=== PATIENT | female | born 1950 | race Caucasian/White ===

== ENCOUNTER 2024-02-13 18:33 | Inpatient (IN) | payer MEDICARE, OTHER ==
[~2024-02-13] VITALS: Ht 154.9 cm; Wt 54.9 kg
[2024-02-13] MEDS ORDERED: diphenhydrAMINE 50 MG/1 ML VIAL ONE ×2 (18:39→21:22)
[2024-02-13] MEDS ORDERED: HALOPERIDOL LACTATE 5 MG/1 ML VIAL ONE ×2 (18:39→21:22)
[2024-02-13] MEDS ORDERED: LORAZEPAM 2 MG/1 ML VIAL ONE ×2 (18:40→21:23)
[2024-02-13] MEDS ORDERED: OLAN15TA3 PO (19:02)
[2024-02-13] MEDS ORDERED: ASPI81TA31 PO (19:02)
[2024-02-13] MEDS ORDERED: ACET-3117 PO (19:02)
[2024-02-13] MEDS ORDERED: LEVO200T9 PO (19:02)
[2024-02-13] MEDS ORDERED: AMLO10TA4 PO (19:02)
[2024-02-13] MEDS ORDERED: DIVA500T54 PO (19:02)
[2024-02-13] MEDS ORDERED: ASCO500C18 PO (19:02)
[2024-02-13] MEDS ORDERED: MIRT-73 PO (19:02)
[2024-02-13] MEDS ORDERED: NA P133E RC (19:02)
[2024-02-13] MEDS ORDERED: TUBERCULIN PPD (19:02)
[2024-02-13] MEDS ORDERED: MAGN400O6 PO (19:02)
[2024-02-13] MEDS ORDERED: BISA10SU61 RC (19:02)
[2024-02-13] MEDS ORDERED: QUET200T PO (19:02)
[2024-02-13] MEDS ORDERED: ACETAMINOPHEN ES 500 MG TABLET ONE (19:03)
[2024-02-13 19:06] LABS: BASOPHILS % (AUTO) 0.4 % (0.0-2.0); DIFFERENTIAL COMMENT 1; EOSINOPHILS # (AUTO) 0.2 K/uL (0.0-0.7); EOSINOPHILS % (AUTO) 1.9 % (0.0-7.0); HEMATOCRIT 41.7 % (31.2-41.9); HEMOGLOBIN 14.8 g/dL (10.9-14.3); LYMPHOCYTES # (AUTO) 3.6 K/uL (0.8-4.8); LYMPHOCYTES % (AUTO) 40.5 % (20.5-51.5); MEAN CORPUSCULAR HEMOGLOBIN 31.2 uug (24.7-32.8); MEAN CORPUSCULAR HGB CONC 36 g/dL (32.3-35.6); MEAN CORPUSCULAR VOLUME 87.8 fL (75.5-95.3); MONOCYTES # (AUTO) 0.6 K/uL (0.1-1.30); MONOCYTES % (AUTO) 6.7 % (0.0-11.0); NEUTROPHILS # (AUTO) 4.5 K/uL (1.8-8.9); NEUTROPHILS % (AUTO) 50.5 % (38.5-71.5); PLATELET COUNT (AUTO) 391 K/uL (179-408); RED BLOOD CELL COUNT(AUTO) 4.75 MIL/uL (3.63-4.92); RED CELL DISTRIBUTION WIDTH 13.9 % (12.3-17.7); WHITE BLOOD COUNT (AUTO) 8.9 K/uL (3.8-11.8)
[2024-02-13 19:17] LABS: CARBON DIOXIDE 24 mmol/L (21-32); CHLORIDE 106 mmol/L (98-107); CREATININE 0.5 mg/dL (0.6-1.3); GLUCOSE 88 mg/dL (74-106); POTASSIUM 3.9 mmol/L (3.5-5.1); SODIUM SERUM 140 mmol/L (136-145); UREA NITROGEN, BLOOD 15 mg/dL (7-18)
[2024-02-13] MEDS: LORAZEPAM 2 MG/1 ML VIAL IM ONE ×2 (19:21→21:28)
[2024-02-13] MEDS: diphenhydrAMINE 50 MG/1 ML VIAL IVP ONE (19:21)
[2024-02-13] MEDS: HALOPERIDOL LACTATE 5 MG/1 ML VIAL IM ONE ×2 (19:21→21:28)
[2024-02-13 19:26] LABS: ALANINE AMINOTRANSFERASE 13 U/L (14-59); ALBUMIN 3.3 g/dL (3.4-5.0); ALKALINE PHOSPHATASE 111 U/L (50-136); ASPARTATE AMINOTRANSFERASE < 5 U/L (15-37); BILIRUBIN,DIRECT 0.1 mg/dL (0.0-0.2); BILIRUBIN,TOTAL 0.3 mg/dL (0.2-1.0); TOTAL PROTEIN, SERUM 7.5 g/dL (6.4-8.2)
[2024-02-13 19:37] LABS: CALCIUM 9.1 mg/dL (8.5-10.1)
[2024-02-13 19:43] LABS: ETHANOL < 3 MG/DL (0-10)
[2024-02-13] MEDS: diphenhydrAMINE 50 MG/1 ML VIAL IM ONE (21:28)
[2024-02-13] MEDS ORDERED: QUETIAPINE FUMARATE 100 MG TABLET PO PRN (23:45)
[2024-02-13] MEDS ORDERED: MAGNESIUM HYDROXIDE 30 ML LIQUID UDC PO PRN (23:45)
[2024-02-13] MEDS ORDERED: ZOLPIDEM 5 MG TABLET PO PRN (23:45)
[2024-02-14] MEDS: BLOOD SUGAR DIAGNOSTIC 1 EACH STRIP VI ONE (00:28)
[2024-02-14 02:50] LABS: THYROID STIMULATING HORMONE 0.235 mIU/mL (0.358-3.740)
[2024-02-14 02:52] LABS: ACETAMINOPHEN < 10.0 ug/mL (10-30)
[2024-02-14] MEDS ORDERED: QUETIAPINE FUMARATE 25 MG TABLET PO PRN (07:15)
[2024-02-14 08:23] VITALS: BP 140/86; TEMP 97.9; O2SAT 95
[2024-02-14 08:29] LABS: ALANINE AMINOTRANSFERASE 10 U/L (14-59); ALBUMIN 2.7 g/dL (3.4-5.0); ALKALINE PHOSPHATASE 92 U/L (50-136); ASPARTATE AMINOTRANSFERASE < 5 U/L (15-37); BILIRUBIN,TOTAL 0.4 mg/dL (0.2-1.0); CALCIUM 8.4 mg/dL (8.5-10.1); CARBON DIOXIDE 24 mmol/L (21-32); CHLORIDE 112 mmol/L (98-107); CREATININE 0.6 mg/dL (0.6-1.3); GLUCOSE 80 mg/dL (74-106); POTASSIUM 4.2 mmol/L (3.5-5.1); SODIUM SERUM 144 mmol/L (136-145); TOTAL PROTEIN, SERUM 6.1 g/dL (6.4-8.2); UREA NITROGEN, BLOOD 16 mg/dL (7-18)
[2024-02-14] MEDS ORDERED: BISACODYL 10 MG SUPP.RECT RC PRN (09:00)
[2024-02-14] MEDS ORDERED: ASCORBIC ACID 500 MG TABLET PO SCH (09:00)
[2024-02-14] MEDS: AMLODIPINE 10 MG TABLET PO SCH (09:08)
[2024-02-14] MEDS: ASPIRIN 81 MG TAB.CHEW PO SCH (09:08)
[2024-02-14] MEDS: ASCORBIC ACID 500 MG TABLET PO SCH (09:08)
[2024-02-14] MEDS ORDERED: DIVALPROEX 125 MG TABLET.DR PO SCH (14:00)
[2024-02-14] MEDS: DIVALPROEX 250 MG TABLET.DR PO SCH (14:02)
[2024-02-14] MEDS: OLANZAPINE ZYDIS 5 MG TAB.RAPDIS PO PRN (14:04)
[2024-02-14] MEDS: MAG HYDROX/AL HYDROX/SIMETH 30 ML LIQUID UDC PO PRN (15:20)
[2024-02-14] MEDS: ACETAMINOPHEN 325 MG TABLET PO PRN (15:20)
[2024-02-14 16:46] VITALS: BP 128/99; TEMP 98; O2SAT 95
[2024-02-14 20:00] VITALS: BP 114/91; TEMP 98; O2SAT 95
[2024-02-14] MEDS: OLANZAPINE ZYDIS 5 MG TAB.RAPDIS PO SCH (21:00)
== END 2024-02-14 23:05 | disposition short-term general hospital (02) | DRG 885 ==
LOC: ER 18:34 → GPS 23:15
PROVIDERS: ADMIT Psychiatry & Neurology Psychiatry; ATTEND Nurse Practitioner Family
DX: F25.9 Schizoaffective disorder, unspecified (principal); F06.8 Other specified mental disorders due to known physiological condition; G93.40 Encephalopathy, unspecified; E44.1 Mild protein-calorie malnutrition; K56.609 Unspecified intestinal obstruction, unspecified as to partial versus complete obstruction; E03.9 Hypothyroidism, unspecified; E88.09 Other disorders of plasma-protein metabolism, not elsewhere classified; F17.210 Nicotine dependence, cigarettes, uncomplicated; I10 Essential (primary) hypertension; J44.9 Chronic obstructive pulmonary disease, unspecified; R41.9 Unspecified symptoms and signs involving cognitive functions and awareness; Z88.1 Allergy status to other antibiotic agents; Z91.012 Allergy to eggs; Z91.013 Allergy to seafood; Z88.8 Allergy status to other drugs, medicaments and biological substances; Z91.018 Allergy to other foods
CPT/HCPCS: 36415; 71045; 84443; 84484; 85025; 93005; A4606; A4663; A9150; G0480; J1200; J1630; J2060; J3490

== ENCOUNTER 2024-02-14 21:58 | Inpatient (IN) | payer MEDICARE, OTHER ==
[~2024-02-14] VITALS: Ht 154.9 cm; Wt 69.9 kg
[~2024-02-14 21:58] MED LIST: ACET-3117 PO; AMLO10TA4 PO; ASCO500C18 PO; ASPI81TA31 PO; BISA10SU61 RC; DIVA500T54 PO; LEVO200T9 PO; MAGN400O6 PO; MIRT-73 PO; NA P133E RC; OLAN15TA3 PO; QUET200T PO; TUBERCULIN PPD
[2024-02-15 01:13] VITALS: BP 104/67; O2SAT 95
[2024-02-15] MEDS ORDERED: ONDANSETRON 4 MG/2 ML VIAL IV PRN (01:15)
[2024-02-15] MEDS ORDERED: REMEDY ESSENTIAL ZINC PASTE 113 GM TP PRN (01:15)
[2024-02-15] MEDS: IV D5 1/2 NS 1000 ML 1,000 ML IV SCH (02:32)
[2024-02-15] MEDS: OLANZAPINE 10 MG VIAL IM PRN (03:34)
[2024-02-15] MEDS: LORAZEPAM 2 MG/1 ML VIAL IM PRN (05:41)
[2024-02-15 07:30] LABS: BASOPHILS % (AUTO) 0.6 % (0.0-2.0); EOSINOPHILS # (AUTO) 0.1 K/uL (0.0-0.7); EOSINOPHILS % (AUTO) 1.7 % (0.0-7.0); HEMATOCRIT 39.8 % (31.2-41.9); HEMOGLOBIN 14.5 g/dL (10.9-14.3); LYMPHOCYTES # (AUTO) 2.6 K/uL (0.8-4.8); LYMPHOCYTES % (AUTO) 37.3 % (20.5-51.5); MEAN CORPUSCULAR HEMOGLOBIN 31.8 uug (24.7-32.8); MEAN CORPUSCULAR HGB CONC 36 g/dL (32.3-35.6); MEAN CORPUSCULAR VOLUME 87.1 fL (75.5-95.3); MONOCYTES # (AUTO) 0.5 K/uL (0.1-1.30); MONOCYTES % (AUTO) 6.6 % (0.0-11.0); NEUTROPHILS # (AUTO) 3.7 K/uL (1.8-8.9); NEUTROPHILS % (AUTO) 53.8 % (38.5-71.5); PLATELET COUNT (AUTO) 366 K/uL (179-408); RED BLOOD CELL COUNT(AUTO) 4.56 MIL/uL (3.63-4.92); RED CELL DISTRIBUTION WIDTH 14.1 % (12.3-17.7)
[2024-02-15 07:43] LABS: DIFFERENTIAL COMMENT 1
[2024-02-15 07:59] LABS: ALANINE AMINOTRANSFERASE 13 U/L (14-59); ALBUMIN 3.2 g/dL (3.4-5.0); ALKALINE PHOSPHATASE 106 U/L (50-136); AMYLASE 80 U/L (25-115); ASPARTATE AMINOTRANSFERASE < 5 U/L (15-37); BILIRUBIN,TOTAL 0.6 mg/dL (0.2-1.0); CALCIUM 8.8 mg/dL (8.5-10.1); CARBON DIOXIDE 23 mmol/L (21-32); CHLORIDE 111 mmol/L (98-107); CREATININE 0.6 mg/dL (0.6-1.3); GLUCOSE 94 mg/dL (74-106); MAGNESIUM 2.2 mg/dL (1.8-2.4); PHOSPHOROUS 3.4 mg/dL (2.5-4.9); POTASSIUM 4.1 mmol/L (3.5-5.1); SODIUM SERUM 145 mmol/L (136-145); UREA NITROGEN, BLOOD 12 mg/dL (7-18)
[2024-02-15] MEDS: PANTOPRAZOLE SODIUM 40 MG VIAL IV SCH (09:11)
[2024-02-15 10:32] VITALS: BP 152/97; TEMP 98; O2SAT 95
[2024-02-15] MEDS ORDERED: DIATR MEGLU/DIATRIZOATE SODIUM 30 ML BOTTLE ONE (12:15)
[2024-02-15 12:21] VITALS: BP 136/99; TEMP 98.4; O2SAT 95
[2024-02-15 13:42] LABS: LIPASE 28 U/L (16-77)
[2024-02-15 18:29] VITALS: BP 145/98; TEMP 98; O2SAT 94
[2024-02-16 06:00] VITALS: BP 134/98; TEMP 98.1
[2024-02-16 07:27] LABS: BASOPHILS # (AUTO) 0.1 K/UL (0.0-0.2); BASOPHILS % (AUTO) 0.7 % (0.0-2.0); EOSINOPHILS # (AUTO) 0.1 K/uL (0.0-0.7); EOSINOPHILS % (AUTO) 0.8 % (0.0-7.0); HEMATOCRIT 41.3 % (31.2-41.9); HEMOGLOBIN 14.8 g/dL (10.9-14.3); LYMPHOCYTES # (AUTO) 2.8 K/uL (0.8-4.8); LYMPHOCYTES % (AUTO) 27.7 % (20.5-51.5); MEAN CORPUSCULAR HEMOGLOBIN 31.2 uug (24.7-32.8); MEAN CORPUSCULAR HGB CONC 36 g/dL (32.3-35.6); MEAN CORPUSCULAR VOLUME 87.4 fL (75.5-95.3); MONOCYTES # (AUTO) 0.8 K/uL (0.1-1.30); MONOCYTES % (AUTO) 7.7 % (0.0-11.0); NEUTROPHILS # (AUTO) 6.4 K/uL (1.8-8.9); NEUTROPHILS % (AUTO) 63.1 % (38.5-71.5); PLATELET COUNT (AUTO) 354 K/uL (179-408); RED BLOOD CELL COUNT(AUTO) 4.73 MIL/uL (3.63-4.92); RED CELL DISTRIBUTION WIDTH 14.2 % (12.3-17.7); WHITE BLOOD COUNT (AUTO) 10.2 K/uL (3.8-11.8)
[2024-02-16 07:37] LABS: DIFFERENTIAL COMMENT 1
[2024-02-16 07:58] LABS: CARBON DIOXIDE 23 mmol/L (21-32); CHLORIDE 113 mmol/L (98-107); CREATININE 0.6 mg/dL (0.6-1.3); GLUCOSE 126 mg/dL (74-106); PHOSPHOROUS 3.6 mg/dL (2.5-4.9); POTASSIUM 4.3 mmol/L (3.5-5.1); SODIUM SERUM 145 mmol/L (136-145); UREA NITROGEN, BLOOD 11 mg/dL (7-18)
[2024-02-16 08:12] VITALS: BP 134/98; TEMP 98.1; O2SAT 95
[2024-02-16 09:02] LABS: CALCIUM 9.2 mg/dL (8.5-10.1)
[2024-02-16 12:28] VITALS: BP 124/94; TEMP 98.9; O2SAT 97
[2024-02-16] MEDS ORDERED: MIRALAX 17 GM POWD.PACK NG SCH (13:00)
[2024-02-16] MEDS: MIRALAX 17 GM POWD.PACK NG SCH (13:31)
[2024-02-16 16:00] VITALS: BP 137/95; TEMP 98.9; O2SAT 95
[2024-02-16] MEDS: ACETAMINOPHEN 650 MG SUPP.RECT RC PRN (17:57)
[2024-02-17 06:05] LABS: BASOPHILS % (AUTO) 0.5 % (0.0-2.0); EOSINOPHILS # (AUTO) 0.2 K/uL (0.0-0.7); EOSINOPHILS % (AUTO) 1.9 % (0.0-7.0); HEMATOCRIT 40.3 % (31.2-41.9); HEMOGLOBIN 14.2 g/dL (10.9-14.3); LYMPHOCYTES # (AUTO) 3.2 K/uL (0.8-4.8); LYMPHOCYTES % (AUTO) 34.9 % (20.5-51.5); MEAN CORPUSCULAR HEMOGLOBIN 31.2 uug (24.7-32.8); MEAN CORPUSCULAR HGB CONC 35 g/dL (32.3-35.6); MEAN CORPUSCULAR VOLUME 88.4 fL (75.5-95.3); MONOCYTES # (AUTO) 0.8 K/uL (0.1-1.30); MONOCYTES % (AUTO) 8.3 % (0.0-11.0); NEUTROPHILS # (AUTO) 4.9 K/uL (1.8-8.9); NEUTROPHILS % (AUTO) 54.4 % (38.5-71.5); PLATELET COUNT (AUTO) 308 K/uL (179-408); RED BLOOD CELL COUNT(AUTO) 4.55 MIL/uL (3.63-4.92); RED CELL DISTRIBUTION WIDTH 14.1 % (12.3-17.7); WHITE BLOOD COUNT (AUTO) 9.1 K/uL (3.8-11.8)
[2024-02-17 06:25] LABS: CALCIUM 8.7 mg/dL (8.5-10.1); CREATININE 0.6 mg/dL (0.6-1.3); MAGNESIUM 1.9 mg/dL (1.8-2.4); PHOSPHOROUS 4.2 mg/dL (2.5-4.9); POTASSIUM 4.1 mmol/L (3.5-5.1)
[2024-02-17 06:44] LABS: DIFFERENTIAL COMMENT 1
[2024-02-17 12:00] VITALS: BP 111/76; TEMP 98.3; O2SAT 93
[2024-02-17 16:00] VITALS: BP 131/73; TEMP 98; O2SAT 95
[2024-02-17 19:30] VITALS: BP 129/72; TEMP 98.2; O2SAT 96
[2024-02-18 05:50] VITALS: BP 134/79; TEMP 97.8; O2SAT 93
[2024-02-18] MEDS: BENZONATATE 100 MG CAPSULE PO SCH (06:39)
[2024-02-18] MEDS: PANTOPRAZOLE SODIUM 40 MG TABLET.DR PO SCH (06:39)
[2024-02-18 07:27] LABS: BASOPHILS % (AUTO) 0.5 % (0.0-2.0); EOSINOPHILS # (AUTO) 0.2 K/uL (0.0-0.7); EOSINOPHILS % (AUTO) 1.9 % (0.0-7.0); HEMATOCRIT 38.6 % (31.2-41.9); HEMOGLOBIN 13.6 g/dL (10.9-14.3); LYMPHOCYTES # (AUTO) 2.4 K/uL (0.8-4.8); LYMPHOCYTES % (AUTO) 27.1 % (20.5-51.5); MEAN CORPUSCULAR HEMOGLOBIN 30.9 uug (24.7-32.8); MEAN CORPUSCULAR HGB CONC 35 g/dL (32.3-35.6); MEAN CORPUSCULAR VOLUME 87.9 fL (75.5-95.3); MONOCYTES # (AUTO) 0.6 K/uL (0.1-1.30); MONOCYTES % (AUTO) 6.6 % (0.0-11.0); NEUTROPHILS # (AUTO) 5.6 K/uL (1.8-8.9); NEUTROPHILS % (AUTO) 63.9 % (38.5-71.5); PLATELET COUNT (AUTO) 297 K/uL (179-408); RED BLOOD CELL COUNT(AUTO) 4.39 MIL/uL (3.63-4.92); RED CELL DISTRIBUTION WIDTH 13.8 % (12.3-17.7); WHITE BLOOD COUNT (AUTO) 8.8 K/uL (3.8-11.8)
[2024-02-18 07:54] LABS: CALCIUM 8.4 mg/dL (8.5-10.1); CARBON DIOXIDE 22 mmol/L (21-32); CHLORIDE 110 mmol/L (98-107); CREATININE 0.5 mg/dL (0.6-1.3); GLUCOSE 97 mg/dL (74-106); POTASSIUM 3.6 mmol/L (3.5-5.1); SODIUM SERUM 144 mmol/L (136-145); UREA NITROGEN, BLOOD 6 mg/dL (7-18)
[2024-02-18 07:55] LABS: DIFFERENTIAL COMMENT 1
[2024-02-18 08:18] VITALS: BP 125/76; TEMP 98; O2SAT 95
[2024-02-18] MEDS: MIRALAX 17 GM POWD.PACK PO SCH (10:17)
[2024-02-18] MEDS ORDERED: POLY17PO4 PO (10:35)
[2024-02-18] MEDS ORDERED: OLAN10VI IM (10:35)
[2024-02-18] MEDS ORDERED: PANT40TA49 PO (10:35)
[2024-02-18 11:56] VITALS: BP 113/74; TEMP 98.5; O2SAT 95
[2024-02-18] MEDS: LACTULOSE 20 G/30 ML LIQUID UDC PO ONE (14:33)
[2024-02-18] MEDS: SIMETHICONE 80 MG TAB.CHEW PO SCH (14:34)
[2024-02-18] MEDS: METOCLOPRAMIDE HCL 10 MG/2 ML VIAL IV SCH (14:34)
[2024-02-18 16:00] VITALS: BP 122/76; TEMP 98.5; O2SAT 94
[2024-02-18 20:01] VITALS: BP 115/71; TEMP 97.7; O2SAT 94
[2024-02-19 04:04] VITALS: BP 121/67; TEMP 97.6; O2SAT 96
[2024-02-19] MEDS: OLANZAPINE ZYDIS 5 MG TAB.RAPDIS PO SCH (10:51)
[2024-02-19] MEDS: MINERAL OIL FLEET ENEMA 133 ML BOTTLE RC ONE (10:56)
[2024-02-19] MEDS: DIVALPROEX 250 MG TABLET.DR PO SCH (12:03)
[2024-02-19] MEDS: ACETAMINOPHEN 325 MG TABLET PO PRN (14:32)
[2024-02-19] MEDS: METOCLOPRAMIDE HCL 10 MG TABLET PO SCH (16:30)
== END 2024-02-19 17:07 | DRG 388 ==
LOC: MEDSURG3 21:58 → UNDOADMIN 21:58
PROVIDERS: ADMIT Nurse Practitioner Family; ATTEND Nurse Practitioner Family
PROC: 0D9670Z Drainage of Stomach with Drainage Device, Via Natural or Artificial Opening (ICD-10-PCS; principal; 2024-02-15)
DX: K56.609 Unspecified intestinal obstruction, unspecified as to partial versus complete obstruction (principal); G93.41 Metabolic encephalopathy; E44.1 Mild protein-calorie malnutrition; E44.0 Moderate protein-calorie malnutrition; E03.9 Hypothyroidism, unspecified; J44.9 Chronic obstructive pulmonary disease, unspecified; I10 Essential (primary) hypertension; E88.09 Other disorders of plasma-protein metabolism, not elsewhere classified; F31.9 Bipolar disorder, unspecified; Z96.642 Presence of left artificial hip joint; Z88.1 Allergy status to other antibiotic agents; Z91.012 Allergy to eggs; Z91.013 Allergy to seafood; Z91.018 Allergy to other foods; F17.210 Nicotine dependence, cigarettes, uncomplicated; Z78.1 Physical restraint status; F25.9 Schizoaffective disorder, unspecified
CPT/HCPCS: 36415; 71045; 74018; 74250; 83605; 83690; 83735; 84100; 85025; 85730; A4663; C9113; G0378; J2060; J2358; J2765; J3490; J7040; J8597; Q9963

== ENCOUNTER 2024-02-19 17:52 | Inpatient (IN) | payer MEDICARE, OTHER ==
[~2024-02-19] VITALS: Ht 152.4 cm; Wt 56.2 kg
[2024-02-19 08:00] VITALS: BP 130/76; TEMP 97.7; O2SAT 94
[2024-02-19 15:00] VITALS: BP 142/69; TEMP 98.4; O2SAT 97
[~2024-02-19 17:52] MED LIST changes: -DIVA500T54 PO; -MIRT-73 PO; +OLAN10VI IM; -OLAN15TA3 PO; +PANT40TA49 PO; +POLY17PO4 PO; -QUET200T PO; -TUBERCULIN PPD
[2024-02-19 19:00] VITALS: BP 143/94; TEMP 99; O2SAT 96
[2024-02-19] MEDS ORDERED: MAGNESIUM HYDROXIDE 30 ML LIQUID UDC PO PRN (19:45)
[2024-02-19] MEDS ORDERED: FLEET ENEMA 133 ML BOTTLE RC PRN (20:00)
[2024-02-19] MEDS: BLOOD SUGAR DIAGNOSTIC 1 EACH STRIP VI ONE (20:08)
[2024-02-19] MEDS: MIRALAX 17 GM POWD.PACK PO SCH (21:00)
[2024-02-20] MEDS: PANTOPRAZOLE SODIUM 40 MG TABLET.DR PO SCH (06:19)
[2024-02-20 07:56] VITALS: BP 140/88; TEMP 98; O2SAT 98
[2024-02-20] MEDS: LEVOTHYROXINE SODIUM 200 MCG TABLET PO SCH (08:00)
[2024-02-20] MEDS: AMLODIPINE 10 MG TABLET PO SCH (09:29)
[2024-02-20] MEDS: ASPIRIN 81 MG TAB.CHEW PO SCH (09:29)
[2024-02-20] MEDS: DIVALPROEX 125 MG TABLET.DR PO SCH (14:59)
[2024-02-20] MEDS: OLANZAPINE ZYDIS 5 MG TAB.RAPDIS PO SCH (14:59)
[2024-02-20 16:07] VITALS: BP 128/89; TEMP 98; O2SAT 96
[2024-02-20] MEDS: ACETAMINOPHEN 325 MG TABLET PO PRN (18:36)
[2024-02-20 20:00] VITALS: BP 129/91; TEMP 97.8; O2SAT 96
[2024-02-20 20:15] VITALS: O2SAT 96
[2024-02-21 07:30] VITALS: BP 116/90; TEMP 97.6; O2SAT 100
[2024-02-21] MEDS: MAG HYDROX/AL HYDROX/SIMETH 30 ML LIQUID UDC PO PRN (07:34)
[2024-02-21] MEDS: REMEDY ESSENTIAL ZINC PASTE 113 GM TOP PRN (12:53)
[2024-02-21 16:38] VITALS: BP 110/76; TEMP 97.9; O2SAT 96
[2024-02-21 20:00] VITALS: BP 122/78; TEMP 97.7; O2SAT 96
[2024-02-22] MEDS: OLANZAPINE 2.5 MG TABLET PO PRN (07:19)
[2024-02-22 08:36] VITALS: BP 127/85; TEMP 97.8; O2SAT 97
[2024-02-22 16:48] VITALS: BP 143/81; TEMP 97.9; O2SAT 97
[2024-02-22 19:51] VITALS: BP 136/78; TEMP 97.8; O2SAT 96
[2024-02-23 08:42] VITALS: BP 123/85; TEMP 97.9; O2SAT 98
[2024-02-23] MEDS: OLANZAPINE 2.5 MG TABLET PO ONE (15:59)
[2024-02-23 16:05] VITALS: BP 124/87; TEMP 97.8; O2SAT 97
[2024-02-23 19:55] VITALS: BP 118/78; TEMP 97.9; O2SAT 95
[2024-02-23] MEDS: OLANZAPINE ZYDIS 5 MG TAB.RAPDIS PO SCH (20:04)
[2024-02-24 08:02] VITALS: BP 124/49; TEMP 98.2; O2SAT 97
[2024-02-24 09:07] LABS: BASOPHILS % (AUTO) 0.5 % (0.0-2.0); EOSINOPHILS # (AUTO) 0.1 K/uL (0.0-0.7); EOSINOPHILS % (AUTO) 2.2 % (0.0-7.0); HEMATOCRIT 42.5 % (31.2-41.9); LYMPHOCYTES % (AUTO) 43.7 % (20.5-51.5); MEAN CORPUSCULAR HGB CONC 35 g/dL (32.3-35.6); MONOCYTES # (AUTO) 0.4 K/uL (0.1-1.30); MONOCYTES % (AUTO) 7.8 % (0.0-11.0); NEUTROPHILS # (AUTO) 2.1 K/uL (1.8-8.9); NEUTROPHILS % (AUTO) 45.8 % (38.5-71.5); PLATELET COUNT (AUTO) 369 K/uL (179-408); RED BLOOD CELL COUNT(AUTO) 4.83 MIL/uL (3.63-4.92); RED CELL DISTRIBUTION WIDTH 14.3 % (12.3-17.7); WHITE BLOOD COUNT (AUTO) 4.7 K/uL (3.8-11.8)
[2024-02-24 09:11] LABS: DIFFERENTIAL COMMENT 1
[2024-02-24 09:21] LABS: ALANINE AMINOTRANSFERASE 19 U/L (14-59); ALBUMIN 3.1 g/dL (3.4-5.0); ALKALINE PHOSPHATASE 106 U/L (50-136); ASPARTATE AMINOTRANSFERASE 7 U/L (15-37); BILIRUBIN,TOTAL 0.7 mg/dL (0.2-1.0); CARBON DIOXIDE 24 mmol/L (21-32); CHLORIDE 106 mmol/L (98-107); CREATININE 0.6 mg/dL (0.6-1.3); GLUCOSE 111 mg/dL (74-106); MAGNESIUM 2.2 mg/dL (1.8-2.4); PHOSPHOROUS 3.8 mg/dL (2.5-4.9); POTASSIUM 4.2 mmol/L (3.5-5.1); SODIUM SERUM 141 mmol/L (136-145); TOTAL PROTEIN, SERUM 7.2 g/dL (6.4-8.2); UREA NITROGEN, BLOOD 14 mg/dL (7-18); VALPROIC ACID 30 ug/mL (50-100)
[2024-02-24 09:32] LABS: THYROID STIMULATING HORMONE 1.717 mIU/mL (0.358-3.740)
[2024-02-24 15:18] VITALS: BP 102/54; TEMP 98.2; O2SAT 98
[2024-02-24] MEDS: LORAZEPAM 2 MG/1 ML VIAL IM STA (15:26)
[2024-02-24] MEDS: DIVALPROEX 125 MG TABLET.DR PO ONE (15:47)
[2024-02-24] MEDS: DIVALPROEX 500 MG TABLET.DR PO SCH (16:31)
[2024-02-24] MEDS ORDERED: DIVALPROEX 125 MG TABLET.DR PO SCH (17:00)
[2024-02-24 22:52] VITALS: BP 111/79; TEMP 98; O2SAT 98
[2024-02-24] MEDS: ZOLPIDEM 5 MG TABLET PO PRN (22:52)
[2024-02-25 09:20] VITALS: BP 123/55; TEMP 97.6; O2SAT 97
[2024-02-25] MEDS: CLONAZEPAM 0.5 MG TABLET PO ONE (14:35)
[2024-02-25] MEDS: OLANZAPINE 5 MG TABLET PO SCH (16:36)
[2024-02-25] MEDS: OLANZAPINE 10 MG VIAL IM STA (18:01)
[2024-02-25] MEDS: diphenhydrAMINE 50 MG/1 ML VIAL IM ONE (18:04)
[2024-02-25 20:00] VITALS: BP 116/65; TEMP 98; O2SAT 96
[2024-02-26 08:07] VITALS: BP 142/83; TEMP 98.2; O2SAT 96
[2024-02-26] MEDS: CLONAZEPAM 0.5 MG TABLET PO SCH (08:22)
[2024-02-26] MEDS: OLANZAPINE 5 MG TABLET PO SCH (08:23)
[2024-02-26] MEDS: GABAPENTIN 300 MG CAPSULE PO SCH (14:51)
[2024-02-26 15:26] VITALS: BP 123/90; TEMP 98; O2SAT 98
[2024-02-26] MEDS: ZOLPIDEM 5 MG TABLET PO SCH (21:00)
[2024-02-27 08:03] VITALS: BP 160/89; TEMP 98; O2SAT 99
[2024-02-27 15:32] VITALS: BP 111/68; TEMP 98.2; O2SAT 96
[2024-02-27 20:00] VITALS: BP 95/63; TEMP 97.1; O2SAT 92
[2024-02-28] MEDS: LEVOTHYROXINE SODIUM 175 MCG TABLET PO SCH (06:03)
[2024-02-28 08:09] LABS: BASOPHILS % (AUTO) 0.4 % (0.0-2.0); EOSINOPHILS # (AUTO) 0.1 K/uL (0.0-0.7); EOSINOPHILS % (AUTO) 2.6 % (0.0-7.0); HEMATOCRIT 40.2 % (31.2-41.9); HEMOGLOBIN 13.6 g/dL (10.9-14.3); LYMPHOCYTES % (AUTO) 36.9 % (20.5-51.5); MEAN CORPUSCULAR HEMOGLOBIN 30.8 uug (24.7-32.8); MEAN CORPUSCULAR HGB CONC 34 g/dL (32.3-35.6); MONOCYTES # (AUTO) 0.3 K/uL (0.1-1.30); MONOCYTES % (AUTO) 6.4 % (0.0-11.0); NEUTROPHILS # (AUTO) 2.8 K/uL (1.8-8.9); NEUTROPHILS % (AUTO) 53.7 % (38.5-71.5); PLATELET COUNT (AUTO) 309 K/uL (179-408); RED BLOOD CELL COUNT(AUTO) 4.42 MIL/uL (3.63-4.92); RED CELL DISTRIBUTION WIDTH 14.7 % (12.3-17.7); WHITE BLOOD COUNT (AUTO) 5.3 K/uL (3.8-11.8)
[2024-02-28 08:12] VITALS: BP 122/85; TEMP 97.6; O2SAT 97
[2024-02-28 08:13] LABS: DIFFERENTIAL COMMENT 1
[2024-02-28 08:27] LABS: ALANINE AMINOTRANSFERASE 8 U/L (14-59); ALBUMIN 2.9 g/dL (3.4-5.0); ALKALINE PHOSPHATASE 96 U/L (50-136); ASPARTATE AMINOTRANSFERASE < 5 U/L (15-37); BILIRUBIN,TOTAL 0.4 mg/dL (0.2-1.0); CALCIUM 8.6 mg/dL (8.5-10.1); CARBON DIOXIDE 23 mmol/L (21-32); CHLORIDE 106 mmol/L (98-107); CREATININE 0.7 mg/dL (0.6-1.3); GLUCOSE 81 mg/dL (74-106); POTASSIUM 3.9 mmol/L (3.5-5.1); SODIUM SERUM 140 mmol/L (136-145); TOTAL PROTEIN, SERUM 6.5 g/dL (6.4-8.2); UREA NITROGEN, BLOOD 24 mg/dL (7-18); VALPROIC ACID 55 ug/mL (50-100)
[2024-02-28 16:58] VITALS: BP 113/72; TEMP 98.1; O2SAT 96
[2024-02-28] MEDS: QUETIAPINE FUMARATE 25 MG TABLET PO SCH (20:36)
[2024-02-29 07:50] VITALS: BP 137/95; TEMP 97.3; O2SAT 97
[2024-02-29 08:42] LABS: BASOPHILS % (AUTO) 0.4 % (0.0-2.0); EOSINOPHILS # (AUTO) 0.2 K/uL (0.0-0.7); EOSINOPHILS % (AUTO) 2.7 % (0.0-7.0); HEMATOCRIT 43.6 % (31.2-41.9); HEMOGLOBIN 14.3 g/dL (10.9-14.3); LYMPHOCYTES # (AUTO) 2.4 K/uL (0.8-4.8); MEAN CORPUSCULAR HEMOGLOBIN 30.1 uug (24.7-32.8); MEAN CORPUSCULAR HGB CONC 33 g/dL (32.3-35.6); MEAN CORPUSCULAR VOLUME 91.6 fL (75.5-95.3); MONOCYTES # (AUTO) 0.4 K/uL (0.1-1.30); MONOCYTES % (AUTO) 6.9 % (0.0-11.0); NEUTROPHILS # (AUTO) 3.3 K/uL (1.8-8.9); PLATELET COUNT (AUTO) 299 K/uL (179-408); RED BLOOD CELL COUNT(AUTO) 4.76 MIL/uL (3.63-4.92); RED CELL DISTRIBUTION WIDTH 14.7 % (12.3-17.7); WHITE BLOOD COUNT (AUTO) 6.3 K/uL (3.8-11.8)
[2024-02-29 08:48] LABS: DIFFERENTIAL COMMENT 1
[2024-02-29 09:05] LABS: ALANINE AMINOTRANSFERASE 9 U/L (14-59); ALKALINE PHOSPHATASE 101 U/L (50-136); ASPARTATE AMINOTRANSFERASE 7 U/L (15-37); BILIRUBIN,TOTAL 0.4 mg/dL (0.2-1.0); CARBON DIOXIDE 23 mmol/L (21-32); CHLORIDE 108 mmol/L (98-107); CREATININE 0.5 mg/dL (0.6-1.3); GLUCOSE 84 mg/dL (74-106); SODIUM SERUM 141 mmol/L (136-145); TOTAL PROTEIN, SERUM 6.8 g/dL (6.4-8.2); UREA NITROGEN, BLOOD 17 mg/dL (7-18); VALPROIC ACID 34 ug/mL (50-100)
[2024-02-29 09:28] LABS: POTASSIUM 4.3 mmol/L (3.5-5.1)
[2024-02-29 16:50] VITALS: BP 115/75; TEMP 97.8; O2SAT 98
[2024-02-29] MEDS: DIVALPROEX 250 MG TABLET.DR PO SCH (17:12)
[2024-02-29 20:00] VITALS: BP 104/64; TEMP 98; O2SAT 93
[2024-03-01 08:02] VITALS: BP 120/78; TEMP 97.6; O2SAT 97
[2024-03-01 15:48] VITALS: BP 109/86; TEMP 97.8; O2SAT 97
[2024-03-01] MEDS: OLANZAPINE 5 MG TABLET PO SCH (17:39)
[2024-03-01 19:59] VITALS: BP 118/76; TEMP 97.8; O2SAT 96
[2024-03-01] MEDS ORDERED: ZOLPIDEM 5 MG TABLET PO PRN (21:00)
[2024-03-02 07:30] VITALS: BP 121/89; TEMP 98; O2SAT 96
[2024-03-02 15:13] VITALS: BP 117/64; TEMP 98; O2SAT 98
[2024-03-02 20:00] VITALS: BP 121/73; TEMP 98; O2SAT 97
[2024-03-02] MEDS: QUETIAPINE FUMARATE 25 MG TABLET PO SCH (20:50)
[2024-03-03 08:00] VITALS: BP 119/62; TEMP 97.8; O2SAT 97
[2024-03-03] MEDS: ENSURE ENLIVE (VAN) 240 ML LIQUID PO SCH (12:15)
[2024-03-03 16:00] VITALS: BP 126/80; TEMP 97.4; O2SAT 96
[2024-03-03 20:03] VITALS: BP 120/66; TEMP 97.8; O2SAT 95
[2024-03-03] MEDS ORDERED: GABAPENTIN 300 MG CAPSULE PO SCH (21:00)
[2024-03-03] MEDS: GABAPENTIN 400 MG CAPSULE PO SCH (21:24)
[2024-03-04 08:03] VITALS: BP 118/70; TEMP 98; O2SAT 98
[2024-03-04 09:01] VITALS: BP 118/70
== END 2024-03-04 11:45 | DRG 885 ==
LOC: GPS 17:52
PROVIDERS: ADMIT Psychiatry & Neurology Psychiatry
DX: F25.9 Schizoaffective disorder, unspecified (principal); E44.0 Moderate protein-calorie malnutrition; M48.56XA Collapsed vertebra, not elsewhere classified, lumbar region, initial encounter for fracture; J44.9 Chronic obstructive pulmonary disease, unspecified; F17.210 Nicotine dependence, cigarettes, uncomplicated; E03.9 Hypothyroidism, unspecified; Z88.1 Allergy status to other antibiotic agents; Z91.012 Allergy to eggs; Z91.013 Allergy to seafood; Z88.8 Allergy status to other drugs, medicaments and biological substances; Z91.018 Allergy to other foods; I10 Essential (primary) hypertension; Z91.51 Personal history of suicidal behavior; K59.00 Constipation, unspecified; Z87.81 Personal history of (healed) traumatic fracture; R00.1 Bradycardia, unspecified; R41.9 Unspecified symptoms and signs involving cognitive functions and awareness; E05.90 Thyrotoxicosis, unspecified without thyrotoxic crisis or storm
CPT/HCPCS: 36415; 80164; 82652; 83735; 84100; 84443; 85025; J1200; J2060; J2358; J3490